=== PATIENT | female | born 1975 | race Caucasian/White ===

== ENCOUNTER 2017-04-08 10:45 | Emergency (ER) | payer MEDICARE, MEDICAID ==
[~2017-04-08] VITALS: Ht 162.6 cm; Wt 78.0 kg
[~2017-04-08 10:45] MED LIST: HALO5TAB PO; TRAZ-129 PO
[2017-04-08 10:50] VITALS: BP 113/74
== END 2017-04-08 13:10 | disposition home or self-care (01) ==
LOC: ER 11:02
DX: N61.1 Abscess of the breast and nipple (principal); J44.9 Chronic obstructive pulmonary disease, unspecified; F31.9 Bipolar disorder, unspecified; Z90.721 Acquired absence of ovaries, unilateral
CPT/HCPCS: 99283